=== PATIENT | female | born 1995 | race Caucasian/White ===

== ENCOUNTER 2017-11-30 09:34 | Emergency (ER) | payer OTHER ==
[~2017-11-30] VITALS: Ht 162.6 cm; Wt 77.1 kg
[2017-11-30 11:31] LABS: Source, Urine Clean Catch
[2017-11-30] MEDS ORDERED: Zofran Odt4 MG SL (11:49)
[2017-11-30 11:55] LABS: Bilirubin, Urine Neg (Neg); Blood, Urine 1+ (Neg); Glucose Qualitative, Urine Neg (Neg); Ketones, Urine 1+ (Neg); Leukocyte Esterase, Urine Neg (Neg); Nitrite, Urine Neg (Neg); Protein, Urine Neg (Neg); Urobilinogen, Urine NORM (Normal)
[2017-11-30 12:19] LABS: Appearance, Urine Clear (Clear); Color, Urine Yellow (P-Yellow)
[2017-11-30 12:22] LABS: Bacteria Not Seen /hpf; Red Blood Cells, Urine 0-2 /hpf (0-2); Squamous Epithelial Cells Rare /hpf (Few); White Blood Cells, Urine Not Seen /hpf (0-5)
== END 2017-11-30 12:01 | disposition home or self-care (01) ==
LOC: ER 09:34
PROVIDERS: Physician Assistant
DX: O99.281 Endocrine, nutritional and metabolic diseases complicating pregnancy, first trimester (principal); E86.0 Dehydration; Z87.891 Personal history of nicotine dependence; Z3A.01 Less than 8 weeks gestation of pregnancy
CPT/HCPCS: 81001; 84702; 96361; 96374; 99284-25; J2405; J7030

== ENCOUNTER 2018-07-29 22:21 | Inpatient (IN) | payer OTHER ==
[~2018-07-29] VITALS: Ht 160 cm; Wt 86.8 kg
[~2018-07-29 22:21] MED LIST: Zofran Odt4 MG SL
[2018-07-29] MEDS ORDERED: UNISOM25 MG PO (22:50)
[2018-07-29] MEDS ORDERED: Verotin-Gr Cap1 EACH PO (22:50)
[2018-07-29] MEDS ORDERED: ACET500 (22:50)
[2018-07-29 23:20] LABS: BASOPHILS ABSOLUTE AUTO 0.03 K/mm3 (0.00-0.23); BASOPHILS PERCENT AUTO 0 % (0-2); EOSINOPHILS ABSOLUTE AUTO 0.05 K/mm3 (0.00-0.68); EOSINOPHILS PERCENT AUTO 0 % (0-6); Hematocrit 31.8 % (33.0-51.0); Hemoglobin 10.5 g/dL (11.5-16.0); IMMATURE GRAN ABSOLUTE AUTO 0.09 K/mm3 (0.00-0.10); IMMATURE GRAN PERCENT AUTO 1 % (0-1); LYMPHOCYTES ABSOLUTE AUTO 2.17 K/mm3 (0.84-5.20); LYMPHOCYTES PERCENT AUTO 18 % (21-46); MONOCYTES PERCENT AUTO 7 % (4-13); Mean Corpuscular HGB 32.1 pg (26.0-34.0); Mean Corpuscular Volume 97 fL (80-100); Mean Platelet Volume 9.9 fL (9.1-12.4); NEUTROPHILS ABSOLUTE AUTO 8.89 K/mm3 (1.96-9.15); NEUTROPHILS PERCENT AUTO 73 % (41-73); Platelet Count 219 K/mm3 (150-400); RDW Coefficient Variation 14.2 % (11.7-14.2); RDW Standard Deviation 50.2 fL (35.1-46.3); Red Blood Cell Count 3.27 M/mm3 (3.80-5.20); White Blood Cell Count 12.13 K/mm3 (4.00-11.30)
--- NOTE | 2018-07-30 19:12 | NUR ---
REPORT TO ONCOMING SHIFT
[2018-07-31 06:11] LABS: Hematocrit 27.9 % (33.0-51.0); Hemoglobin 8.5 g/dL (11.5-16.0); Mean Corpuscular HGB 31.5 pg (26.0-34.0); Mean Corpuscular HGB Conc 30.5 g/dL (31.5-36.5); Mean Platelet Volume 10.1 fL (9.1-12.4); Platelet Count 183 K/mm3 (150-400); RDW Coefficient Variation 14.5 % (11.7-14.2); RDW Standard Deviation 54.6 fL (35.1-46.3)
[2018-07-31 06:20] LABS: Mean Corpuscular Volume 103 fL (80-100)
--- NOTE | 2018-07-31 13:59 | NUR ---
PLAN TO DC HOME LATER TONIGHT. PARENTS LOVING AND ATTENTIVE. MOM HAS NEVER BRF HER OTHER 2 CHILDREN, SO SIX[place] HAS BEEN IN WELL.
--- NOTE | 2018-07-31 14:26 | NUR ---
CONSULT, HE IS LESS THAN 24 HOURS OLD. INSTRUCT/DEMO SELF EBM, BUT UNABLE TO GET A DROP IN SEVERAL ATTEMPTS. SHE HAS NOT BF HER OTHER 2 CHILDREN BUT STATES SHE DID GET ENGORGED WITH THEM. THIS BABY IS STILL VERY SLEEPY. MOM IS HANDLING HIM WELL AND WORKING WITH HIM TO LATCH, BUT HIS ROOTING IS SO MINIMAL HE WILL NOT SUCKLE. SHIELD APPLIED AND HE WOULD NOT SUCK ON IT EITHER. PLANS HOME THIS EVENING. INSTRUCT TO START PUMPING FOR 15 MINUTES, BOTH BREASTS, Q2-3 HOURS DAY, Q4 HOURS AT NIGHT, ALONG WITH PUTTING BABY TO BREAST. INSTRUCT IN CHANGES TO EXPECT DURING THE FIRST WEEK WITH BABY AND WITH FEEDINGS AND REFERRED TO [facility] AND PAGE 18 OF [facility] [employer] FOR PHOTOS AND INFORMATION. QUESTIONS ANSWERED.
[2018-07-31] MEDS ORDERED: IBUP800 PO (15:13)
--- NOTE | 2018-07-31 18:02 | NUR ---
BANDS MATCHED, ALL DC INSTRUCTIONS GONE OVER, ALL QUESTIONS ANSWERED. PACKING UP FOR DC.
== END 2018-07-31 18:20 | disposition home or self-care (01) | DRG 807 ==
LOC: OBS 22:21 → BC 22:22 → OBS 22:37 → BC 22:40
PROVIDERS: ADMIT Advanced Practice Midwife
PROC: 10E0XZZ Delivery of Products of Conception, External Approach (ICD-10-PCS; principal; 2018-07-30)
PROC: 6A550ZT Pheresis of Cord Blood Stem Cells, Single (ICD-10-PCS; 2018-07-30)
PROC: 3E0R3BZ Introduction of Anesthetic Agent into Spinal Canal, Percutaneous Approach (ICD-10-PCS; 2018-07-30)
PROC: 00HU33Z Insertion of Infusion Device into Spinal Canal, Percutaneous Approach (ICD-10-PCS; 2018-07-30)
PROC: 10907ZC Drainage of Amniotic Fluid, Therapeutic from Products of Conception, Via Natural or Artificial Opening (ICD-10-PCS; 2018-07-30)
PROC: 0HQ9XZZ Repair Perineum Skin, External Approach (ICD-10-PCS; 2018-07-30)
DX: O99.320 Drug use complicating pregnancy, unspecified trimester (principal); Z37.0 Single live birth; Z3A.40 40 weeks gestation of pregnancy; O70.0 First degree perineal laceration during delivery
CPT/HCPCS: 36415; 51702; 85025; 85027; 86900; 86901; J0290; J1580; J1885; J2405; J2590; J7120

== ENCOUNTER 2021-02-07 17:01 | Emergency (ER) | payer BC ==
[~2021-02-07] VITALS: Ht 160 cm; Wt 81.7 kg
[~2021-02-07 17:01] MED LIST changes: +ACET500; +IBUP800 PO; +UNISOM25 MG PO; +Verotin-Gr Cap1 EACH PO
[2021-02-07] MEDS ORDERED: Amoxicillin500 MG PO (17:40)
[2021-02-07] MEDS ORDERED: PSEUDOEPHEDRINE30 M3 PO (17:40)
[2021-02-07] MEDS ORDERED: IBUP600 PO (17:40)
== END 2021-02-07 17:49 | disposition home or self-care (01) ==
LOC: ER 17:01
DX: H66.91 Otitis media, unspecified, right ear (principal); Z91.018 Allergy to other foods; Z87.891 Personal history of nicotine dependence
CPT/HCPCS: 99282; A9270

== ENCOUNTER 2021-10-24 10:04 | Inpatient (IN) | payer BC, OTHER ==
[~2021-10-24] VITALS: Ht 160 cm; Wt 77.0 kg
[~2021-10-24 10:04] MED LIST changes: +Amoxicillin500 MG PO; +IBUP600 PO; +PSEUDOEPHEDRINE30 M3 PO
[2021-10-24] MEDS ORDERED: PRENATAL TABLE1 EAC2 (11:14)
[2021-10-24 11:50] LABS: BASOPHILS ABSOLUTE AUTO 0.03 K/mm3 (0.00-0.23); BASOPHILS PERCENT AUTO 0 % (0-2); EOSINOPHILS ABSOLUTE AUTO 0.05 K/mm3 (0.00-0.68); EOSINOPHILS PERCENT AUTO 1 % (0-6); Hemoglobin 11.2 g/dL (11.5-16.0); IMMATURE GRAN ABSOLUTE AUTO 0.08 K/mm3 (0.00-0.10); IMMATURE GRAN PERCENT AUTO 1 % (0-1); LYMPHOCYTES ABSOLUTE AUTO 1.82 K/mm3 (0.84-5.20); LYMPHOCYTES PERCENT AUTO 20 % (21-46); MONOCYTES ABSOLUTE AUTO 0.56 K/mm3 (0.16-1.47); MONOCYTES PERCENT AUTO 6 % (4-13); Mean Corpuscular HGB 32.9 pg (26.0-34.0); Mean Corpuscular HGB Conc 33.9 g/dL (31.5-36.5); Mean Corpuscular Volume 97 fL (80-100); Mean Platelet Volume 9.7 fL (9.1-12.4); NEUTROPHILS ABSOLUTE AUTO 6.52 K/mm3 (1.96-9.15); NEUTROPHILS PERCENT AUTO 72 % (41-73); Platelet Count 201 K/mm3 (150-400); RDW Coefficient Variation 13.5 % (11.7-14.2); White Blood Cell Count 9.06 K/mm3 (4.00-11.30)
[2021-10-25 06:00] LABS: Hematocrit 31.2 % (33.0-51.0); Hemoglobin 10.6 g/dL (11.5-16.0); Mean Corpuscular HGB 32.9 pg (26.0-34.0); Mean Corpuscular Volume 97 fL (80-100); Mean Platelet Volume 9.7 fL (9.1-12.4); Platelet Count 208 K/mm3 (150-400); RDW Coefficient Variation 13.3 % (11.7-14.2); RDW Standard Deviation 47.6 fL (35.1-46.3); Red Blood Cell Count 3.22 M/mm3 (3.80-5.20)
[2021-10-25] MEDS ORDERED: IBUP800 PO (14:47)
--- NOTE | 2021-10-25 23:27 | NUR ---
DISCHARGE SUMMARY PT DISCHARGED HOME AT THIS TIME WITH AND SPOUSE VIA IND AMBULATION OFF UNIT TO PRIVATE CAR. VITALS SIGNS STABLE, MIN VAGINAL BLEEDING, RUSTY PO INTAKE, VOIDING, AND REPORTS DISCOMFORT AT RUSTY LEVEL. PERSONAL BELONGINGS, DISCHARGE INSTRUCTIONS, SCRIPTS, AND FOLLOW UP APPT PROVIDED TO PT PRIOR TO DC.
== END 2021-10-25 23:35 | disposition home or self-care (01) | DRG 806 ==
LOC: BC 10:04 → OBS 10:04 → BC 11:02
PROVIDERS: Family Medicine; ADMIT Advanced Practice Midwife
PROC: 10E0XZZ Delivery of Products of Conception, External Approach (ICD-10-PCS; principal; 2021-10-24)
PROC: 0HQ9XZZ Repair Perineum Skin, External Approach (ICD-10-PCS; 2021-10-24)
PROC: 00HU33Z Insertion of Infusion Device into Spinal Canal, Percutaneous Approach (ICD-10-PCS; 2021-10-24)
PROC: 3E0R3BZ Introduction of Anesthetic Agent into Spinal Canal, Percutaneous Approach (ICD-10-PCS; 2021-10-24)
DX: O42.02 Full-term premature rupture of membranes, onset of labor within 24 hours of rupture (principal); O99.324 Drug use complicating childbirth; Z37.0 Single live birth; O70.0 First degree perineal laceration during delivery; Z67.10 Type A blood, Rh positive; Z3A.38 38 weeks gestation of pregnancy; O69.81X0 Labor and delivery complicated by cord around neck, without compression, not applicable or unspecified; F12.10 Cannabis abuse, uncomplicated
CPT/HCPCS: 36415; 51702; 59025; 81003; 85025; 85027; 86850; 86900; 86901; A9270; J1200; J1885; J2001; J2210; J2405; J2590; J3010; J7120